=== PATIENT | female | born 1985 | race Caucasian/White ===

== ENCOUNTER → 2017-10-07 | Outpatient (CLI) | payer OTHER ==
[~2017-10-07] MED LIST: MTR600X PO; PRENTAB26 PO; VALA500T60 PO
== END | disposition home or self-care (01) ==
LOC: C.PAPS 15:11
PROVIDERS: ATTEND Obstetrics & Gynecology
DX: Z01.419 Encounter for gynecological examination (general) (routine) without abnormal findings (principal)

== ENCOUNTER → 2017-10-16 | Outpatient (CLI) | payer OTHER ==
--- NOTE | 2017-10-16 15:06 | MAMMOGRAPHY REPORT ---
UNILATERAL RIGHT DIGITAL DIAGNOSTIC MAMMOGRAM TOMOSYNTHESIS WITH CAD AND TARGETED BILATERAL ULTRASOUN CLINICAL HISTORY: The patient reports intermittent pain in the left axillary region and reports that her provider felt possible cystic tissue in the right lateral breast during clinical exam. TECHNIQUE: Breast tomosynthesis in addition to standard 2D mammography was performed. Current study was also evaluated with a Computer Aided Detection (CAD) system. Right CC and MLO 2D and tomosynthes is images were obtained. COMPARISON: No prior exams were available for comparison. BREAST COMPOSITION: There are scattered areas of fibroglandular density in the right breast. FINDINGS: A triangle marker abrams the area of palpable cystic tissue in the right upper outer quadran t pointed out by the patient. There are no suspicious masses, calcifications, or areas of architectu ral distortion noted in the right breast. Scattered benign-appearing right breast calcifications are noted which are predominantly dermal in location. Targeted ultrasound was performed of the area of pain pointed out by the patient in the axillary amanda on. No suspicious masses or other suspicious sonographic abnormalities are evident. There are morph ologically normal left axillary lymph nodes, without evidence of axillary adenopathy. Targeted ultra sound was also performed of the right lateral breast in the region of the cystic tissue described by the referring provider. The patient cannot pinpoint the exact location of the finding felt by the pr shaheed. However, sonographically normal tissue is seen throughout the right lateral breast. During the exam, the patient also reported that she has had some pain in her left inferior breast below the nipple. Targeted ultrasound of this region also shows normal tissue. No suspicious mass or other otero spicious sonographic abnormality is evident. IMPRESSION: ACR BI-RADS CATEGORY 2: BENIGN, TARGETED ULTRASOUND ACR BI-RADS CATEGORY 2: BENIGN No suspicious mammographic or sonographic abnormality in the right lateral breast in the region of th e palpable finding described by the patient's provider. No sonographic abnormalities are seen in the regions of pain pointed out by the patient in the left axillary region and left inferior breast. Th ere is no mammographic or targeted sonographic evidence of malignancy. Recommend clinical follow-up for bilateral breast complaints, and recommend routine bilateral screening mammograms starting at the age of 40. The patient has been verbally notified of the results. Approximately 10% of breast cancers are not detected with mammography. A negative mammographic report should not delay biopsy if a clinically suggestive mass is present. Viky Arana M.D. ah/:10/16/2017 09:39:31 Medical Director/Head Team Physician: Xiao COPELAND(R)(M), [facility] letter sent: Normal 1/2 BI-RADS Code: ACR BI-RADS Category 2: Benign Ultrasound BI-RADS: ACR BI-RADS Category 2: Benign
== END | disposition home or self-care (01) ==
LOC: C.MAMM 09:00
PROVIDERS: ATTEND Obstetrics & Gynecology
DX: N60.01 Solitary cyst of right breast (principal)

== ENCOUNTER 2022-07-17 07:42 | Inpatient (IN) ==
[2022-07-17] MEDS ORDERED: LIDOCAINE 1% LOCAL 20 ML VIAL INFIL PRN (07:55)
[2022-07-17] MEDS ORDERED: OXYTOCIN 30 UNITS/500 ML BAG IV PRN ×3 (07:55→17:47)
--- NOTE | 2022-07-17 09:09 | History & Physical Report ---
Date of Service July 17, 2022 Assessment & Plan (1) Encounter for induction of labor: Plan admit, iv, labs. start pitocin. arom when regular pattern. fhts categ 1. Admission and Anticipated Discharge Date Admission Date: July 17, 2022 History of Present Illness Chief Complaint: Induction of labor Primary Care Provider: An Souza at 40 weeks and 5 days confirmed via ultrasound. Here for induction of labor. Complications with this include AMA, Hx HSV on Valtrex. Has been attending OB appointments regularly. Currently taking no medications. Contractions: yes, painful last starting last night about 25 mins apart. Fluid or Blood loss: none Movement: active Labs - Blood type: O+ - Antibody screen: negative - H.8 - Hct: 35.9 - Rubella immune - VDRL/RPR nonreactive - Gonorrhea negative - Chlamydia negative - HIV negative - HbSAg negative - GBS negative - Glucose tolerance x 2 Allergies Allergy/AdvReac Type Severity Reaction Status Date / Time No Known Drug Allergies Allergy Verified 07/16/22 08:44 Home Medications Medication Instructions Recorded Confirmed Type valacyclovir 500 mg tablet 500 mg PO BID #60 tabs 05/24/22 07/17/22 Rx (Valtrex) famotidine 20 mg tablet (Pepcid) 20 mg PO DAILY 06/18/22 07/17/22 History vits no.124-ferrous fum 1 tab PO DAILY 07/17/22 07/17/22 History 27 mg iron-folic acid 800 mcg tablet ( Vitamin) Patient History Medical History (Updated 07/17/22 @ 09:11 by Grzegorz Turner DO) History of chicken pox History of herpes simplex infection History of migraine headaches History of spontaneous No significant past medical history Surgical History History of wisdom tooth extraction No significant past surgical history Family History Father Adopted Hypertension Mother Anemia Heart disease Hypertension Dyslipidemia Grandmother (Maternal) Breast cancer Heart disease Hypertension Uterine fibroid Grandfather (Maternal) Heart disease Hypertension Aunt Endometriosis maternal Sister Uterine fibroid Denies family history of Ovarian cancer Colorectal cancer Social History (Updated 11/26/21 @ 13:15 by Roxana Ramires) Smoking Status: Never smoker Second Hand Exposure: No; Hx Alcohol Use: No Hx Substance Use: No Preferred Language: Trinidadian Communication Ability: Effective Visual Impairment: No Limitations Hearing Ability: Normal Health And Safety Representative Required: No Beliefs That Will Affect Care: None marital status: marital status details: Lacho De Luna (37) [phone] Current Living Situation: Family Current Living Situation Comment: lives with spouse, son, dogs current occupational status: employed current occupation: [employer] Other Information That Helps Us Care for You: No Feels Safe at Home: Yes Safety Concerns: Feels Safe At This Time Assistive Devices: None Review of Systems Denies fever, chills, sweats Denies shortness of breath, difficulty breathing, chest pain, palpitations, chest pressure. Denies breast pain. Denies dysuria. Denies headache or changes in vision. Physical Exam 2 Physical Exam: General: Alert, oriented. No acute distress. Cardiac: Regular rate and rhythm, no murmurs/rubs/gallops. Respiratory: Clear to auscultation bilaterally a/p, no wheezes/rales/rhonchi. No increased work of breathing. Symmetrical chest rise. No respiratory distress. Pelvic: Dilation 4cm; Effacement 80; Station -[address] Key Lower Extremities: No lower extremity edema or swelling. No deep calf pain. Janes's negative bilaterally Results & Data ([facility]) Vital Signs (Past 12 Hours) Vital Signs Temp Pulse Resp BP 07/17/22 08:26 37.0 C 98 H 20 134/63 07/17/22 08:00 98 H 134/63 Supervising Physician Co-Signing Physician Notes Resident Physician Supervision Note: I interviewed and examined the patient. Discussed with Dr. Turner and agree with findings and plan as documented in the note. Any exceptions or clarifications are listed here: 37yo @ 40 4/, IOL postdates. H/o HSV - no symptoms or signs of outbreak on exam. Start pitocin, ok for epidural when she desires, plan for AROM. Discussed plan with patient, questions answered, she is agreeable. Documented By: Rosalina Key DO Resident Activity Tracking Resident Involvement: Resident Care Provided Care Provided: OB Delivery
[2022-07-17 09:40] LABS: Hemoglobin 12.1 g/dl (12.0-16.0); Mean Corpuscular Hemoglobin 26.9 pg (25.0-34.0); Mean Corpuscular Hgb Conc 32.7 g/dL (32.0-36.0); Mean Corpuscular Volume 82.2 fL (80.0-100.0); Mean Platelet Volume 11.9 fL (9.4-12.3); Platelet Count 260 K/uL (130-400); RDW Coefficient of Variation 14.4 % (11.5-14.5); RDW Standard Deviation 42.2 fL (36.4-46.3); White Blood Count 9.07 K/ul (4.8-10.8)
[2022-07-17] MEDS: LACTATED RINGER'S 1,000 ML IV PRN ×2 (10:27→14:27)
[2022-07-17] MEDS ORDERED: fentaNYL citrate 100 MCG/2 ML VIAL ONE (14:01)
[2022-07-17] MEDS ORDERED: BUPIVACAINE 0.25% 30 ML VIAL ONE (14:01)
[2022-07-17] MEDS ORDERED: ePHEDrine sulfate 50 MG/ML AMP ONE (14:01)
[2022-07-17] MEDS ORDERED: LIDOCAINE 2%/EPINEPHRINE 1:200,000 20 ML SDV ONE (14:01)
[2022-07-17] MEDS ORDERED: SODIUM CHLORIDE 0.9% INJ 10 ML VIAL ONE (14:01)
[2022-07-17] MEDS ORDERED: fentaNYL 2MCG/ML ROPIVACAINE 1.25MG/ML 100 ML BAG EPI ONE (14:02)
[2022-07-17] MEDS ORDERED: ONDANSETRON INJ 2 MG/ML 2 ML VIAL IV PRN (14:33)
[2022-07-17] MEDS ORDERED: diphenhydrAMINE 50 MG/ML VIAL IV PRN (14:33)
[2022-07-17] MEDS ORDERED: NALOXONE HCL 0.4 MG/1 ML VIAL/CARP IV PRN (14:33)
[2022-07-17] MEDS ORDERED: fentaNYL 2MCG/ML ROPIVACAINE 1.25MG/ML 100 ML BAG EPI PRN (14:33)
[2022-07-17] MEDS ORDERED: NALBUPHINE HCL INJ 10 MG/ML AMP IV PRN (14:33)
[2022-07-17] MEDS ORDERED: ePHEDrine sulfate 50 MG/ML AMP IV PRN (14:33)
[2022-07-17] MEDS ORDERED: NALOXONE HCL 1 MG in SODIUM CHLORIDE 0.9% 1000ML 1,000 ML IV PRN (14:33)
--- NOTE | 2022-07-17 14:39 | Anesthesiology Consultation ---
Date of Service July 17, 2022 Assessment & Plan Chart Review Chart Review: Patient NOT seen in Pre Admission Testing and Acceptable Risk for Labor Epidural Consults Requested none ASA ASA2 Proposed Anesthesia Anesthesia Type: Labor Epidural and CSE Risk / Benefits Reviewed With: PT / POA / Parent / Guardian, Accepts Plan and Informed Consent Obtained History Height/Weight Height: 5 ft 5 in Weight: 103.873 kg Allergies Allergy/AdvReac Type Severity Reaction Status Date / Time No Known Drug Allergies Allergy Verified 07/16/22 08:44 Medications Home Medications Medication Instructions Recorded Confirmed Last Taken valacyclovir 500 mg tablet 500 mg PO BID #60 tabs 05/24/22 07/17/22 07/17/22 (Valtrex) famotidine 20 mg tablet (Pepcid) 20 mg PO DAILY 06/18/22 07/17/22 07/17/22 vits no.124-ferrous fum 1 tab PO DAILY 07/17/22 07/17/22 07/16/22 27 mg iron-folic acid 800 mcg tablet ( Vitamin) Active Medications Generic Name Dose Route Start Last Admin Trade Name Richelle PRN Reason Stop Dose Admin Oxytocin 30 units in 500 mls @ 7 mls/hr 07/17/22 07:55 07/17/22 12:46 Pitocin IV 07/19/22 07:54 0.42 units/hr .Q24H PRN 7 mls/hr Labor Induction/Augmentation Titration Protocol 0.42 UNITS/HR Lactated Ringer's 1,000 mls @ 125 mls/hr 07/17/22 07:55 07/17/22 14:27 Lr IV 07/19/22 07:54 125 mls/hr .Q8H PRN Administration L&D Protocol Protocol NPO Date Last Intake of Fluids: 07/17/22 Time Last Intake of Fluids: 13:00 Date Last Intake of Solids: 07/17/22 Time Last Intake of Solids: 07:00 Past Medical History Medical History (Updated 07/17/22 @ 09:11 by Grzegorz Turner DO) History of chicken pox History of herpes simplex infection History of migraine headaches History of spontaneous No significant past medical history Exercise / Class Metabolic Activity II 4-5 Yardwork/Stairs/Walk up hill Past Family History Family History Father Adopted Hypertension Mother Anemia Heart disease Hypertension Dyslipidemia Grandmother (Maternal) Breast cancer Heart disease Hypertension Uterine fibroid Grandfather (Maternal) Heart disease Hypertension Aunt Endometriosis maternal Sister Uterine fibroid Denies family history of Ovarian cancer Colorectal cancer Past Surgical History Surgical History History of wisdom tooth extraction No significant past surgical history Past Anesthesia History No Hx of Anesthesia Complications and No Family Hx of Anesthesia Complications History of PONV No Hx of PONV and No Hx of Motion Sickness Social History Smoking Status: Never smoker Hx Alcohol Use: No Hx Substance Use: No Review of Systems no chest pain or sob Physical Exam Vital Signs Last Vital Signs Temp 36.7 C 07/17/22 11:34 Pulse 86 07/17/22 14:35 Resp 18 07/17/22 11:34 BP 148/73 H 07/17/22 14:35 Pulse Ox 100 07/17/22 14:34 ENMT Mouth: no TMJ abnormality Thyromental Distance: > or= 3.5 Finger Breadths Mallampati Class: II Neck normal visual inspection Respiratory normal respiratory effort Auscultation: lungs clear to auscultation bilaterally Cardiovascular Rate/Rhythm: regular rate and regular rhythm Musculoskeletal Spine: normal cervical ROM Neurologic moves all extremities Psychiatric Orientation: alert and oriented x 3 Testing Laboratory Results 07/17/22 09:00 Blood Type Cancelled 07/17/22 09:00 Blood Type O Positive 07/17/22 09:00 Antibody Screen Cancelled 07/17/22 09:00 Antibody Screen NEGATIVE 07/17/22 09:00
--- NOTE | 2022-07-17 16:18 | Labor Progress Brief Note ---
Date of Service July 17, 2022 Subjective Patient with increased pressure. AROM was performed after epidural, small amount of blood-tinged fluid. At that time, cervix 6/80/-2. At this time, patient has started to have variable decelerations with ctx, +bloody show. Cervix now 9/100/0. Continue labor, repositioning, anticipate . Assessment & Plan Admission and Anticipated Discharge Date Admission Date: July 17, 2022 Results & Data ([facility] [place]) Vital Signs (Past 12 Hours) Vital Signs Temp Pulse Resp BP Pulse Ox 07/17/22 11:00 18 07/17/22 08:26 37.0 C 98 H 20 134/63 07/17/22 16:14 100 07/17/22 16:14 75 07/17/22 16:00 20 07/17/22 16:00 20 07/17/22 16:10 90 07/17/22 16:10 120/74 07/17/22 16:09 100 07/17/22 16:09 96 H 07/17/22 16:06 77 07/17/22 16:06 120/63 07/17/22 16:04 100 07/17/22 16:04 85 07/17/22 15:59 96 07/17/22 15:59 73 07/17/22 15:45 20 07/17/22 15:45 20 07/17/22 15:59 73 07/17/22 15:59 112/57 L 07/17/22 15:54 98 07/17/22 15:54 90 07/17/22 15:54 117/58 L 07/17/22 15:50 87 07/17/22 15:50 132/74 07/17/22 15:49 97 07/17/22 15:49 88 07/17/22 15:44 97 07/17/22 15:44 98 H 07/17/22 15:44 118/60 07/17/22 15:39 96 07/17/22 15:39 93 H 07/17/22 15:39 115/61 07/17/22 15:35 85 07/17/22 15:35 120/65 07/17/22 15:34 97 07/17/22 15:34 86 07/17/22 15:29 97 07/17/22 15:29 97 H 07/17/22 15:00 20 12/07/22 15:00 36.8 C 20 07/17/22 15:15 18 07/17/22 15:15 18 07/17/22 15:30 18 07/17/22 15:30 18 07/17/22 15:29 93 H 07/17/22 15:29 122/72 07/17/22 15:24 98 07/17/22 15:24 97 H 07/17/22 15:24 97 H 07/17/22 15:24 119/73 07/17/22 15:19 97 07/17/22 15:19 101 H 07/17/22 15:19 127/70 07/17/22 15:14 99 07/17/22 15:14 102 H 07/17/22 15:14 123/66 07/17/22 15:09 98 07/17/22 15:09 88 07/17/22 15:09 126/67 07/17/22 15:05 92 H 07/17/22 15:05 132/69 07/17/22 15:04 97 07/17/22 15:04 99 H 07/17/22 14:59 97 07/17/22 14:59 106 H 07/17/22 14:57 93 H 07/17/22 14:57 123/60 07/17/22 14:55 100 H 07/17/22 14:55 122/69 07/17/22 14:54 98 07/17/22 14:54 82 07/17/22 14:53 101 H 07/17/22 14:53 115/69 07/17/22 14:51 74 07/17/22 14:51 116/65 07/17/22 14:49 98 07/17/22 14:49 80 07/17/22 14:49 81 07/17/22 14:49 108/58 L 07/17/22 14:47 81 07/17/22 14:47 104/56 L 07/17/22 14:44 99 07/17/22 14:44 87 07/17/22 14:39 99 07/17/22 14:39 95 H 07/17/22 14:35 86 07/17/22 14:35 148/73 H 07/17/22 14:34 100 07/17/22 14:34 91 H 07/17/22 13:35 97 H 07/17/22 13:35 118/66 07/17/22 12:36 90 07/17/22 12:36 129/82 07/17/22 11:34 77 07/17/22 11:34 36.7 C 18 120/71 07/17/22 10:34 96 H 07/17/22 10:34 118/68 07/17/22 08:00 98 H 134/63 Coding Level of Care Code None
--- NOTE | 2022-07-17 17:42 | Delivery Summary ---
Vaginal Delivery Summary Date of Service July 17, 2022 Vaginal Delivery Summary Vaginal Delivery Summary: Pre-delivery diagnoses: 37yo @ 40 4/7, IOL postdates, h/o HSV, AMA Post-delivery diagnoses: same Procedure: spontaneous vaginal delivery, repair 2nd degree laceration Surgeon: Rosalina Key DO Complications: none Findings: Viable female . Apgars: 7/8. Weight pending, please see nursery records Estimated blood loss:400ml Description of delivery: The patient progressed to complete with epidural anesthesia. She then began to push. She spontaneously vaginally delivered a viable from the cephalic presentation. The head delivered in KIM position. Nuchal x 1, easily reduced. The anterior shoulder delivered, followed by the posterior shoulder, followed by the body. The baby was placed on mother's abdomen. The cord was doubly clamped and cut and the baby was immediately handed off to the nursery team for further resuscitation. A segment was retained for cord gases. Cord blood was obtained. The placenta was delivered spontaneously intact with a 3-vessel cord. The uterus and vagina were swept of clots and debris. IV pitocin was given. The uterus became firm. The cervix, vagina, and perineum were inspected and a 2nd degree perineal laceration was noted and repaired in standard fashion with 3-0 Vicryl. Excellent hemostasis was observed. The mother and baby are recovering in stable and good condition in the room. Sponge, needle and instrument counts were correct x 2. Rosalina Key DO [facility] [place]
[2022-07-17] MEDS ORDERED: DIPHTHERIA/TETANUS/PERTUSSIS 0.5 ML SYR/VIAL IM ONE (17:47)
[2022-07-17] MEDS ORDERED: oxyCODONE/ACETAMINOPHEN 5mg/325mg TAB PO PRN (17:47)
[2022-07-17] MEDS ORDERED: HYDROCORTISONE ACETATE 25 MG SUPP PR PRN (17:47)
[2022-07-17] MEDS ORDERED: bisacodyL 10 MG SUPP PR PRN (17:47)
[2022-07-17] MEDS ORDERED: BENZOCAINE 20% AER SPR 82.5 GM CAN EXT PRN (17:47)
[2022-07-17 17:55] LABS: Base Excess Cord Arterial Bld -5.5 mEq/L (-9-1.8); CO2 Cord Arterial Blood 58 mmHg (39.1-73.5); HCO3 Cord Arterial Blood 23 mmol/L (19.7-28.5); Oxygen Sat Cord Arterial Blood < 60.0 % (<60); PO2 Cord Arterial Blood 10 mmHg (4.1-31.7); pH Cord Arterial Blood 7.21 (7.1-7.38)
[2022-07-17 17:56] LABS: Base Excess Cord Venous Blood -5.4 mEq/L (-7.7-1.9); Cord Venous Blood HCO3 21 mmol/L (18.4-26.8); Cord Venous Blood PCO2 41 mmHg (30.4-57.2); Cord Venous Blood PO2 32 mmHg (14.1-43.3); Cord Venous Blood pH 7.31 (7.20-7.44); O2 Saturation Cord Venous Bld 60.7 % (<68)
[2022-07-17] MEDS: IBUPROFEN 600 MG TAB PO PRN (20:04)
[2022-07-17] MEDS: DOCUSATE SODIUM 100 MG CAP PO SCH (20:05)
--- NOTE | 2022-07-17 20:27 | Anesthesia Procedure Note ---
Date of Service July 17, 2022 Anesthesia Post Epidural Note Vital Signs Vital Signs: Temp Pulse Resp BP Pulse Ox 36.9 C 74 20 118/69 98 07/17/22 17:20 07/17/22 19:21 07/17/22 17:20 07/17/22 19:21 07/17/22 16:59 Pain Intensity Lower Medial Abdomen: Pain Intensity: 5 Notes Mental Status: alert / awake / arousable and participated in evaluation Nausea / Vomiting: adequately controlled Pain: adequately controlled Airway Patency, RR, SpO2: stable & adequate BP & HR: stable & adequate Hydration State: stable & adequate Neuraxial Anesthesia: was administered and sensory block is resolving Anesthetic Complications: no major complications apparent and Pt Satisfied with anesthetic care Epidural: Removed without complications and With tip intact
[2022-07-18] MEDS: IBUPROFEN 600 MG TAB PO PRN ×4 (01:24→23:19)
[2022-07-18] MEDS: ACETAMINOPHEN 325 MG TAB PO PRN ×2 (04:20→09:08)
--- NOTE | 2022-07-18 07:01 | Obstetrical Progress Note ---
Date of Service <Grzegorz Turner DO - Last Filed: 07/18/22 07:51> July 18, 2022 Assessment & Plan <Grzegorz Turner DO - Last Filed: 07/18/22 07:51> (1) Vaginal delivery: Plan - Feels well today. Eating well, voiding well, ambulating well. - Pain well controlled with ibuprofen 600mg Q4H PRN - Routine care -- OOB, ambulation, diet progression as tolerated - After discharge will have 6 week follow-up with Dr. Key. Day #:: 1 <Rosalina Key, DO - Last Filed: 07/18/22 08:20> (1) Vaginal delivery: Subjective <Grzegorz Turner DO - Last Filed: 07/18/22 07:51> Ambulation: ambulating normally Voiding: no voiding problems Passing Gas:: Yes Diet Tolerance:: regular diet Lochia:: Small Feeding Type:: bottle feeding Current Pain Level(1-10): 4 Review of Systems Denies fever, chills, sweats Denies shortness of breath, difficulty breathing, chest pain, palpitations, chest pressure. Denies breast pain. Denies dysuria. Denies headache or changes in vision. Physical Exam <Grzegorz Turner DO - Last Filed: 07/18/22 07:51> General: Alert, oriented. No acute distress. Cardiac: Regular rate and rhythm, no murmurs/rubs/gallops. Respiratory: Clear to auscultation bilaterally a/p, no wheezes/rales/rhonchi. No increased work of breathing. Symmetrical chest rise. No respiratory distress. Abdomen: Soft, nontender, nondistended. Bowel sounds present. Uterus: Uterine fundus firm, palpable 1 cm below umbilicus. Lower Extremities: No lower extremity edema or swelling. No deep calf pain. Janes's negative bilaterally. Results & Data ([facility]) <Grzegorz Turner DO - Last Filed: 07/18/22 07:51> Vital Signs (Past 12 Hours) Vital Signs Temp Pulse Pulse Resp BP BP Pulse Ox 07/18/22 03:05 36.6 C 81 16 104/74 95 07/17/22 23:15 36.5 C 87 16 139/78 98 07/17/22 19:21 74 07/17/22 19:21 118/69 07/17/22 19:06 72 07/17/22 19:06 119/73 O2 Del Method 07/18/22 03:05 Room Air 07/17/22 23:15 Room Air 07/17/22 19:21 07/17/22 19:21 07/17/22 19:06 07/17/22 19:06 <Rosalina Key DO - Last Filed: 07/18/22 08:20> Co-Signing Physician Notes Resident Physician Supervision Note: I was present with Dr. Turner during the history and exam. I discussed the case with the resident and agree with the findings and plan as documented in the note. Any exceptions or clarifications are listed here: PPD#1 doing well, routine care. Anticipate DC tomorrow. Documented By: Rosalina Key DO Resident Activity Tracking <Grzegorz Turner DO - Last Filed: 07/18/22 07:51> Resident Involvement: Resident Care Provided Care Provided: OB Delivery
[2022-07-18 09:01] LABS: Hematocrit (blood only) 33.9 % (34.1-44.9)
[2022-07-18] MEDS: FAMOTIDINE 20 MG TAB PO SCH (09:08)
[2022-07-18] MEDS: DOCUSATE SODIUM 100 MG CAP PO SCH ×2 (09:08→23:20)
[2022-07-18] MEDS: PRENATAL VITAMIN 1 TAB PO SCH (09:08)
[2022-07-18] MEDS ORDERED: bisacodyL 5 MG TABEC PO SCH (20:00)
--- NOTE | 2022-07-19 06:49 | Obstetrical Progress Note ---
Date of Service <Grzegorz Turner DO - Last Filed: 07/19/22 07:35> July 19, 2022 Assessment & Plan <Grzegorz Turner DO - Last Filed: 07/19/22 07:35> (1) Vaginal delivery: Plan - Feels well today. Eating well, voiding well, ambulating well. - Pain well controlled with ibuprofen 600mg Q4H PRN - Routine care -- OOB, ambulation, diet progression as tolerated - After discharge will have 6 week follow-up with Dr. Key. - Will D/C today. Day #:: 2 <Jennifer Duncan MD, FACOG - Last Filed: 07/19/22 07:52> (1) Vaginal delivery: Subjective <Grzegorz Turner DO - Last Filed: 07/19/22 07:35> Ambulation: ambulating normally Voiding: no voiding problems Passing Gas:: Yes Diet Tolerance:: regular diet Lochia:: Small Feeding Type:: bottle feeding Current Pain Level(1-10): 2 Review of Systems Denies fever, chills, sweats Denies shortness of breath, difficulty breathing, chest pain, palpitations, chest pressure. Denies breast pain. Denies dysuria. Denies headache or changes in vision. Physical Exam <Grzegorz Turner DO - Last Filed: 07/19/22 07:35> General: Alert, oriented. No acute distress. Cardiac: Regular rate and rhythm, no murmurs/rubs/gallops. Respiratory: Clear to auscultation bilaterally a/p, no wheezes/rales/rhonchi. No increased work of breathing. Symmetrical chest rise. No respiratory distress. Abdomen: Soft, nontender, nondistended. Bowel sounds present. Uterus: Uterine fundus firm, palpable 2 cm below umbilicus. Lower Extremities: No lower extremity edema or swelling. No deep calf pain. Janes's negative bilaterally. Results & Data ([facility]) <Grzegorz Turner DO - Last Filed: 07/19/22 07:35> Vital Signs (Past 12 Hours) Vital Signs Temp Pulse Resp BP Pulse Ox O2 Del Method 07/18/22 23:16 36.3 C L 88 18 130/78 99 Room Air <Jennifer Duncan MD, FACOG - Last Filed: 07/19/22 07:52> Co-Signing Physician Notes Resident Physician Supervision Note: I interviewed and examined the patient. Discussed with Dr. Turner and agree with findings and plan as documented in the note. Any exceptions or clarifications are listed here: Doing well. Plan d/c. Instructions given. Documented By: Jennifer Duncan MD, FACOG Resident Activity Tracking <Grzegorz Turner DO - Last Filed: 07/19/22 07:35> Resident Involvement: Resident Care Provided Care Provided: OB Delivery
[2022-07-19] MEDS: PRENATAL VITAMIN 1 TAB PO SCH (08:02)
[2022-07-19] MEDS: FAMOTIDINE 20 MG TAB PO SCH (08:02)
[2022-07-19] MEDS: IBUPROFEN 600 MG TAB PO PRN (08:02)
[2022-07-19] MEDS: DOCUSATE SODIUM 100 MG CAP PO SCH (08:02)
[2022-07-19 09:29] VITALS: BP 118/78; PULSE 85; TEMP 97.5; O2SAT 98
== END 2022-07-19 11:20 | disposition home or self-care (01) | DRG 807 ==
LOC: 4S1 07:42 → 4E2 20:47